=== PATIENT | female | born 1965 | race African-American/Black ===

== ENCOUNTER → 2021-06-15 08:23 | Outpatient (CLI) | payer OTHER, BC, SELFPAY ==
--- NOTE | ~2021-06-15 | MR_ITS ---
EXAMINATION: MR elbow LT wo con DATE: 06/15/2021 09:32 INDICATION: Left elbow pain. TECHNIQUE: Magnetic resonance imaging (MRI) of the left elbow was performed without intravenous contr ast. Sequences included coronal, axial, and sagittal PD-weighted FS FSE and coronal, axial, and sagit jennifer PD-weighted FSE. COMPARISON: None FINDINGS: Osseous/other: Bone alignment is normal. No fracture. There are areas of cartilage loss in the ulnohumeral joint inc luding small areas of full-thickness or near full-thickness cartilage loss. Radiocapitellar joint is normal. Tendons: There is mild distal biceps tendinopathy. Brachialis tendon is normal. There is mild common extensor tendinopathy. There is a partial tear of origin of common flexor tendon. The triceps tendon is normal . Ligaments: Radial collateral ligament and lateral ulnar collateral ligament are normal. There are changes of spr ain of ulnar collateral ligament characterized by thickening and increased signal intensity. Cubital tunnel: Ulnar nerve is normal. Fluid: There is a small elbow joint effusion. IMPRESSION: 1. Partial tear of origin of common flexor tendon at the medial humeral epicondyle. 2. Severe chondrosis of ulnohumeral joint. 3. Grade 2 sprain of ulnar collateral ligament. 4. Small elbow joint effusion. Reviewed, dictated and finalized at location A. IMPRESSION: 1. Partial tear of origin of common flexor tendon at the medial humeral epicond yle. 2. Severe chondrosis of ulnohumeral joint. 3. Grade 2 sprain of ulnar collateral ligament. 4. Small elbow joint effusion.
== END ==
PROVIDERS: PCP Internal Medicine Gastroenterology; Visit Provider Orthopaedic Surgery
DX: M25.422 Effusion, left elbow (principal); S53.442A Ulnar collateral ligament sprain of left elbow, initial encounter; X58.XXXA Exposure to other specified factors, initial encounter
CPT/HCPCS: 73221

== ENCOUNTER 2022-12-04 11:10 | Outpatient (CLI) | payer BC, SELFPAY ==
[2022-12-04 11:30] LABS: Basophils Percent Auto 0.3 % (0.2-1.2); Eosinophils Absolute Auto 0.1 K/mm3 (0-0.3); Eosinophils Percent Auto 1.5 % (0-4.4); Hematocrit 32.9 % (37.0-47.0); Hemoglobin 10.2 g/dL (12.0-15.0); Immature Granulocyte Absolute 0.01 K/mm3 (0.00-0.031); Immature Granulocyte Percent A 0.2 % (0-0.5); Lymphocytes Absolute Auto 1.51 K/mm3 (0.9-3.2); Lymphocytes Percent Auto 25.6 % (18.3-44.2); Mean Corpuscular Hemoglobin 29.7 pg (26-34); Mean Corpuscular Volume 95.9 fl (80-100); Mean Platelet Volume 8.7 fl (7.4-10.4); Monocytes Absolute Auto 0.5 K/mm3 (0.1-0.6); Monocytes Percent Auto 7.8 % (2.6-8.5); Neutrophils Absolute Auto 3.8 K/mm3 (1.3-6.7); Neutrophils Percent Auto 64.6 % (45.5-73.1); Platelet Count Result 433 k/mm3 (150-375); Red Blood Count 3.43 M/mm3 (4.2-5.4); Red Cell Distribution Width 15.1 % (11.5-14.5); White Blood Count 5.9 K/mm3 (4.5-10.0)
[2022-12-04 17:46] LABS: Iron 67 ug/dL (37-170)
[2022-12-04 17:56] LABS: Percent Iron Saturation 25 % (20-50)
[2022-12-04 18:07] LABS: Alanine Aminotransferase 16 U/L (6-35); Albumin Level 4.5 g/dL (3.5-5.1); Alkaline Phosphatase 73 U/L (38-126); Anion Gap 9 mmol/L (8-16); Aspartate Amino Transferase 27 U/L (14-36); Bilirubin,Total 0.5 mg/dL (0.2-1.3); Blood Urea Nitrogen 20 mg/dL (7-17); Calcium 9.6 mg/dL (8.4-10.2); Carbon Dioxide 28 mmol/L (22-30); Chloride 103 mmol/L (98-107); Estimated Glomerular Filt Rate > 60; Glucose 102 mg/dL (65-110); Potassium 3.8 mmol/L (3.4-5.0); Sodium 140 mmol/L (137-145)
[2022-12-04 19:20] LABS: Folic Acid > 20.0 ng/mL (2.76->20)
[2022-12-07 16:39] LABS: Methylmalonic Acid 105 nmol/L (87-318)
[2022-12-09 03:48] LABS: Soluble Transferrin Receptor 1.82 mg/L (0.76-1.76)
[2022-12-09 17:02] LABS: Hematocrit 33.8 % (35.0-45.0); Hemoglobin 10.3 g/dL (11.7-15.5); MCH 29.3 pg (27.0-33.0); RDW 13.7 % (11.0-15.0); Red Blood Cell Count 3.52 Mill/uL (3.80-5.10)
== END 2022-12-04 11:11 | disposition home or self-care (01) ==
LOC: ANHLAB 11:15
PROVIDERS: PCP Internal Medicine Gastroenterology; Visit Provider Internal Medicine Hematology & Oncology
DX: D64.9 Anemia, unspecified (principal)
CPT/HCPCS: 36415; 80053; 82607; 82728; 82746; 83021; 83540; 83550; 83921; 84238; 85025

== ENCOUNTER 2023-10-07 10:35 | Outpatient (CLI) | payer BC, SELFPAY ==
[2023-10-07 10:53] LABS: Basophils Percent Auto 0.4 % (0.2-1.2); Eosinophils Absolute Auto 0.1 K/mm3 (0-0.3); Eosinophils Percent Auto 2.1 % (0-4.4); Hematocrit 35.8 % (37.0-47.0); Hemoglobin 11.5 g/dL (12.0-15.0); Immature Granulocyte Absolute 0.04 K/mm3 (0.00-0.031); Immature Granulocyte Percent A 0.6 % (0-0.5); Lymphocytes Absolute Auto 2.06 K/mm3 (0.9-3.2); Lymphocytes Percent Auto 30.3 % (18.3-44.2); Mean Corpuscular HGB Conc 32.1 g/dl (32-36); Mean Corpuscular Hemoglobin 31.1 pg (26-34); Mean Corpuscular Volume 96.8 fl (80-100); Mean Platelet Volume 8.3 fl (7.4-10.4); Monocytes Absolute Auto 0.5 K/mm3 (0.1-0.6); Monocytes Percent Auto 7.4 % (2.6-8.5); Neutrophils Percent Auto 59.2 % (45.5-73.1); Platelet Count Result 333 k/mm3 (150-375); Red Cell Distribution Width 13.2 % (11.5-14.5); White Blood Count 6.8 K/mm3 (4.5-10.0)
[2023-10-07 11:44] LABS: Iron 137 ug/dL (37-170)
[2023-10-07 11:51] LABS: Anion Gap 10 mmol/L (4-12); Blood Urea Nitrogen 22 mg/dL (7-17); Calcium 9.5 mg/dL (8.4-10.2); Carbon Dioxide 30 mmol/L (22-30); Chloride 99 mmol/L (98-107); Estimated Glomerular Filt Rate > 60; Glucose 88 mg/dL (65-110); Sodium 139 mmol/L (137-145)
[2023-10-07 11:57] LABS: Percent Iron Saturation 51 % (20-50)
[2023-10-07 12:58] LABS: Folic Acid 14.9 ng/mL (2.76->20); Vitamin B12 > 1000.0 pg/mL (239-931)
== END 2023-10-07 10:36 | disposition home or self-care (01) ==
LOC: ANHLAB 10:37
PROVIDERS: PCP Internal Medicine Gastroenterology; Visit Provider Internal Medicine Hematology & Oncology
DX: D64.9 Anemia, unspecified (principal); I10 Essential (primary) hypertension
CPT/HCPCS: 36415; 80048; 82607; 82728; 82746; 83540; 83550; 84443; 85025